=== PATIENT | male | born 1975 | race Caucasian/White ===

== ENCOUNTER 2021-08-19 16:17 | Emergency (ER) | payer BC ==
[2021-08-19 16:36] VITALS: BP 156/105; PULSE 83; TEMP 97.9; BMI 54.5
[2021-08-19] MEDS ORDERED: OXYMETAZOLINE 0.05% NASAL SOLUTION 15 ML BOTTLE NS ONE ×3 (16:56→18:01)
[2021-08-19] MEDS ORDERED: ALBUTEROL SO4 HFA INHALER IH ONE ×2 (16:56→16:57)
== END 2021-08-19 18:07 | disposition home or self-care (01) ==
LOC: FER 16:17
PROC: 3E0F7GC Introduction of Other Therapeutic Substance into Respiratory Tract, Via Natural or Artificial Opening (ICD-10-PCS; principal; 2021-08-19)
DX: J18.9 Pneumonia, unspecified organism (principal); J06.9 Acute upper respiratory infection, unspecified
CPT/HCPCS: 71046-TC-FY; 99283-25